=== PATIENT | female | born 1950 | race African-American/Black ===

== ENCOUNTER 2024-06-11 08:57 | Emergency (ER) | payer MEDICARE, SELFPAY ==
[2024-06-11] VITALS (28 sets, daily range): BP systolic 121–148; BP diastolic 72–94; PULSE 83–119; RESP 13–22; TEMP 36.5–36.6; O2SAT 97–100
--- NOTE | ~2024-06-11 | CT_ITS ---
EXAMINATION: CTA brain carotid DATE: 06/11/2024 09:30 CDT INDICATION: Right-sided facial TECHNIQUE: Computed tomographic angiography (CTA) of the head was performed without and with 100 mL O mnipaque-350 intravenous contrast. CTA of the neck was performed with intravenous contrast. The dose- length product was 905.61 mGy-cm. Maximum intensity projection and volume rendered 3D-reconstructions were created by the technologist on a separate workstation. Automated exposure control and iterative reconstruction technique were employed. COMPARISON: CT dated 06/11/2024. FINDINGS: HEAD CTA: The anterior, middle and posterior cerebral arteries are symmetric. There is severely decre ased size of the right internal and common carotid arteries with the majority of intracranial flow be ing provided via collateralization from the left-sided circulation. There is severe atherosclerosis o f the common and internal carotid arteries, right greater than left. NECK CTA: There is severe narrowing of the right common and internal carotid artery with apparent occ lusion of the right internal carotid artery. There is revascularization of the internal carotid via c ollaterals from the external carotid artery. There are dominant vertebral arteries which are unremark able. Small vascular mass of the left thyroid lobe measure 7 mm. Consider correlation with ultrasound . There is approximately 10% stenosis of the proximal left internal carotid artery relative to normal d istal artery lumen diameter. IMPRESSION: 1. 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 There is a severely diminutiv e appearance of the internal carotid artery extending into the intracranial circulation with the tin rity of intracranial flow on the right side being provided via collateralization from the left-sided circulation. Reviewed, dictated and finalized at location B. IMPRESSION: 1. 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 There is a severely diminutive appearance of the internal caroti d artery extending into the intracranial circulation with the majority of intra cranial flow on the right side being provided via collateralization from the le ft-sided circulation.
--- NOTE | ~2024-06-11 | CT_ITS ---
EXAMINATION: CT brain wo con DATE: 06/11/2024 09:05 INDICATION: Right-sided facial droop TECHNIQUE: Computed tomography (CT) of the head was performed without intravenous contrast. The dose- length product was 605.33 mGy-cm. Automated exposure control and iterative reconstruction technique were employed. COMPARISON: No prior studies for comparison. FINDINGS: Mild generalized atrophy. There are scattered moderate periventricular and subcortical whit e matter changes, most likely related to small vessel ischemic disease (microangiopathy). No ventricu lomegaly or midline shift. Basilar cisterns are patent. There are surgical changes consistent with in ternal fixation of the right orbital wall laterally. No significant abnormality of the paranasal sinu ses. There is a right mastoid effusion with surgical changes of the right temporal bone. No acute int racranial hemorrhage, infarction, mass or mass effect. IMPRESSION: 1. No acute intracranial abnormality. Reviewed, dictated and finalized at location B.
--- NOTE | ~2024-06-11 | XR_ITS ---
XR chest 1V portable 06/11/2024 09:41 Indication: CVA. Procedure: AP portable chest Comparison: No prior studies for comparison. Findings: Cardiomegaly. Small left pleural effusion. Focal consolidation left lung base. There is mil d interstitial edema. No pneumothorax. No acute osseous abnormality. Impression: 1: Cardiomegaly with mild interstitial edema. 2: Focal left lower lobe consolidation may represent atelectasis and/or pneumonia. Reviewed, dictated and finalized at location B. Impression: 1: Cardiomegaly with mild interstitial edema. 2: Focal left lower lobe consolidation may represent atelectasis and/or pneumo melodie.
--- NOTE | 2024-06-11 09:06 | ED.NEUROSD ---
HPI - Neuro Symptoms/Deficit General Chief Complaint: Suspected CVA Stated Complaint: L FACIAL DROOP LAST NORMAL 814 Source: patient and EMS Mode of arrival: EMS History of Present Illness HPI Narrative: 73 YEARS OLD FEMALE, RETIREMENT, WAKE UP AT 6:00 A.M. FEELING WEAK AND SOMETHING NOT RIGHT. AT 45 MINUTES AFTER 7 GET HER UP OUT OF THE BED TO WALK AND SHE WAS UNSTEADY SOME A BLURRY VISION LEFT EYE, FEELING LIKE SHE IS GOING TO BLACK OUT. RETIREMENT STAFF NOTICED THAT THE PATIENT HAVE LEFT FACIAL DROOPING COLD EMT. ON ARRIVAL PATIENT DENYING ANY SYMPTOMS, SHE IS TELLING ME THAT SHE HAVE CHRONIC BLINDNESS OF THE RIGHT EYE. PATIENT DENIES ANY ABNORMAL FEELING IN THE FACE, FOCAL WEAKNESS OR SENSORY ABNORMALITY HISTORY OF HYPERTENSION, DIABETES, CONGESTIVE HEART FAILURE, DEPRESSION Related Data Home Medications Medication Instructions Recorded Confirmed Saccharomyces boulardii 250 mg 250 mg PO BID 06/12/24 06/12/24 capsule amiodarone 200 mg tablet 200 mg PO BID 06/12/24 06/12/24 amoxicillin 500 mg-potassium 1 tablet PO TID 06/12/24 06/12/24 clavulanate 125 mg tablet ascorbic acid (vitamin C) 500 mg 500 mg PO DAILY 06/12/24 06/12/24 tablet citalopram 20 mg tablet 20 mg PO DAILY 06/12/24 06/12/24 doxycycline monohydrate 100 mg 100 mg PO BID 06/12/24 06/12/24 capsule empagliflozin 25 mg tablet 25 mg PO DAILY 06/12/24 06/12/24 ferrous sulfate 325 mg (65 mg 325 mg PO DAILY 06/12/24 06/12/24 iron) tablet furosemide 20 mg tablet 10 mg PO DAILY 06/12/24 06/12/24 insulin glargine 100 unit/mL (3 12 unit subcut QAM 06/12/24 06/12/24 mL) subcutaneous pen midodrine 10 mg tablet 10 mg PO TID 06/12/24 06/12/24 potassium chloride 20 mEq 20 meq PO BID 06/12/24 06/12/24 tablet,extended release(part/cryst) prednisolone acetate 1 % eye 1 drp RIGHT EYE Q12H 06/12/24 06/12/24 drops,suspension (Pred Forte) Allergies Allergy/AdvReac Type Severity Reaction Status Date / Time No Known Allergies Allergy Verified 06/11/24 10:01 Review of Systems Review of Systems: All systems reviewed & are unremarkable except as noted in HPI and below Exam Narrative: GENERAL APPEARANCE: WELL-DEVELOPED, WELL-NOURISHED SKIN: NORMAL COLOR HEAD: NORMOCEPHALIC, NONTRAUMATIC EYES: CLEAR CONJUNCTIVA ENT: OROPHARYNX NORMAL, EARS NORMAL, NOSE NORMAL, LEFT FACIAL DROOPING NECK: SUPPLE, NONTENDER CHEST AND RESPIRATORY: AIRWAY PATENT, NO RESPIRATORY DISTRESS, NO ACCESSORY MUSCLE USE HEART: REGULAR RATE/RHYTHM ABDOMEN: SOFT, NONTENDER, NO ORGANOMEGALY, QUIET BOWEL SOUNDS VASCULAR: NORMAL PERIPHERAL PULSES, NORMAL CAPILLARY REFILL. MUSCULOSKELETAL: NORMAL RANGE OF MOTION, NONTENDER BACK NEUROLOGIC: ALERT AND ORIENTED ?3, Course Consultations Consultation #1: DR DURON, NEUROLOGIST AT [facility] WHO ACCEPTED PATIENT TRANSFER Date: 06/11/24 Time: 09:40 Vital Signs Vital signs: Vital Signs Temperature 36.5 C 06/11/24 09:21 Pulse Rate 83 06/11/24 09:21 Respiratory Rate 16 06/11/24 09:21 Blood Pressure 148/94 H 06/11/24 09:21 Pulse Oximetry 100 06/11/24 09:21 Oxygen Delivery Room Air 06/11/24 09:21 Temperature 36.9 C 06/12/24 07:20 Pulse Rate 77 06/12/24 15:00 Respiratory Rate 18 06/12/24 15:00 Blood Pressure 136/76 06/12/24 15:00 Pulse Oximetry 100 06/12/24 15:00 Oxygen Delivery Room Air 06/11/24 10:04 MDM - Neuro Symptoms/Deficit MDM Narrative Medical decision making narrative: PATIENT WOKE UP AT 6:00 A.M. FEELING WEAK, 45 MINUTES AFTER 7 TRY TO GET UP AND NOTICED THAT SHE IS UNSTEADY AND FEELING LIKE SHE IS GOING TO BLACK OUT. RETIREMENT STAFF NOTED THAT THE PATIENT HAVE LEFT FACIAL DROOPING. LAST TIME PATIENT WAS SEEN OKAY WAS LAST NIGHT. VITAL SIGNS STABLE PHYSICAL EXAMINATION SHOWED LEFT FACIAL DROOPING DI
--- NOTE | 2024-06-11 09:07 | ECG_ITS ---
Test Date: 2024-06-11 09:23:34 Measurements Intervals [place] Rate: 77 P: 0 VT: 0 QRS: 9 QRSD: 73 T: 29 QT: 401 QTc: 455 Interpretive Statements ATRIAL FLUTTER/TACHYCARDIA WITH NORMAL VENTRICULAR RESPONSE ANTEROSEPTAL INFARCT, AGE INDETERMINATE BASELINE WANDER- V4-V6 ABNORMAL ECG No previous ECG available for comparison Electronically Signed On 06-11-2024 09:26:56 CDT by Karthikeyan Tony D.O.
[2024-06-11 09:18] LABS: Basophils Absolute Auto 0.1 K/mm3 (0.0-0.1); Basophils Percent Auto 1.1 % (0.2-1.2); Eosinophils Absolute Auto 0.2 K/mm3 (0-0.3); Eosinophils Percent Auto 2.5 % (0-4.4); Hematocrit 35.2 % (37.0-47.0); Hemoglobin 11.3 g/dL (12.0-15.0); Immature Granulocyte Absolute 0.05 K/mm3 (0.00-0.031); Immature Granulocyte Percent A 0.8 % (0-0.5); Lymphocytes Absolute Auto 1.39 K/mm3 (0.9-3.2); Lymphocytes Percent Auto 21.3 % (18.3-44.2); Mean Corpuscular HGB Conc 32.1 g/dl (32-36); Mean Corpuscular Hemoglobin 32.2 pg (26-34); Mean Corpuscular Volume 100.3 fl (80-100); Mean Platelet Volume 9.2 fl (7.4-10.4); Monocytes Absolute Auto 0.6 K/mm3 (0.1-0.6); Monocytes Percent Auto 8.6 % (2.6-8.5); Neutrophils Absolute Auto 4.3 K/mm3 (1.3-6.7); Neutrophils Percent Auto 65.7 % (45.5-73.1); Platelet Count Result 520 k/mm3 (150-375); Red Blood Count 3.51 M/mm3 (4.2-5.4); Red Cell Distribution Width 15.7 % (11.5-14.5); White Blood Count 6.5 K/mm3 (4.5-10.0)
[2024-06-11 09:27] LABS: Glucose Point of Care 79 mg/dl (65-105)
[2024-06-11 09:28] LABS: Alanine Aminotransferase 33 U/L (6-35); Albumin Level 3.7 g/dL (3.5-5.1); Alkaline Phosphatase 175 U/L (38-126); Anion Gap 8 mmol/L (4-12); Aspartate Amino Transferase 43 U/L (14-36); Bilirubin,Total 0.2 mg/dL (0.2-1.3); Blood Urea Nitrogen 12 mg/dL (7-17); Calcium 9.4 mg/dL (8.4-10.2); Carbon Dioxide 26 mmol/L (22-30); Chloride 102 mmol/L (98-107); Estimated CRCL calculation 32 ml/min; Estimated Glomerular Filt Rate 59; Glucose 91 mg/dL (65-110); Potassium 4.4 mmol/L (3.4-5.0); Sodium 136 mmol/L (137-145)
[2024-06-11 09:28] LABS: INR 1.1
[2024-06-11 09:29] LABS: Partial Thromboplastin Time 31.7 Seconds (22.3-36.8)
[2024-06-11 09:39] LABS: Troponin I < 0.012 ng/mL (0.000-0.034)
[2024-06-11] MEDS: ASPIRIN 81 MG CHEWABLE TABLET 324 MG PO (10:13)
--- NOTE | 2024-06-11 19:03 | PC.NURSE ---
Pt is not happy that she have to stay here, Pt is complaining about the food. Pt refused to be on the BP, cardiac and O2 monitor. Pt redirected time, takes off all the monitors and refuse BP and VS.
--- NOTE | 2024-06-11 19:21 | PC.NURSE ---
Report received from RYLEY Denise. Assumed care of patient at this time.
[2024-06-12] VITALS (7 sets, daily range): BP systolic 127–140; BP diastolic 73–96; PULSE 77–103; RESP 17–18; TEMP 36.7–36.9; O2SAT 95–100
--- NOTE | 2024-06-12 07:30 | PC.NURSE ---
Pt given grippy socks, and hygiene products. breakfast ordered and home medications ordered. Pt refuses to get cardiac monitoring on. Pt A&Ox4
[2024-06-12 07:40] LABS: Glucose Point of Care 136 mg/dl (65-105)
[2024-06-12] MEDS: INSULIN GLARGINE (*BKC) 100 UNITS/ML 12 UNITS SUB-Q (07:56)
--- NOTE | 2024-06-12 09:00 | PC.NURSE ---
Hospital bed given to patient
[2024-06-12] MEDS: AMOXICILLIN/CLAVULANATE K 500-125 MG TAB 1 TABLET PO ×2 (09:57→13:31)
[2024-06-12] MEDS: FERROUS SULFATE 325 MG TABLET DR PO (09:57)
[2024-06-12] MEDS: FUROSEMIDE 10 MG TABLET PO (09:57)
[2024-06-12] MEDS: ASCORBIC ACID 500 MG TABLET PO (09:57)
[2024-06-12] MEDS: POTASSIUM CHLORIDE 20 MEQ ER TABLET PO (09:57)
[2024-06-12] MEDS: EMPAGLIFLOZIN 25 MG TABLET PO (09:57)
[2024-06-12] MEDS: CITALOPRAM HYDROBROMIDE 20 MG TABLET PO (09:57)
[2024-06-12] MEDS: DOXYCYCLINE HYCLATE 100 MG TABLET PO (09:57)
[2024-06-12] MEDS: AMIODARONE HCL 200 MG TABLET PO (09:57)
[2024-06-12] MEDS: MIDODRINE HCL 10 MG TABLET PO ×2 (09:57→13:31)
[2024-06-12] MEDS: SACCHAROMYCES BOULARDII 250 MG CAPSULE PO (09:58)
[2024-06-12] MEDS: prednisoLONE ACETATE 1% OPHTH 5 ML 1 DROP RIGHT EYE ×2 (09:58→13:31)
--- NOTE | 2024-06-12 11:49 | PC.NURSE ---
changed pt ostomy bag
--- NOTE | 2024-06-12 17:16 | PC.NURSE ---
attempted to call [facility] to update the pt facility that she would be transferred to [facility] but no one answered
--- NOTE | 2024-06-12 17:17 | PC.NURSE ---
tried calling report over to [facility] numerous time, seven times at this time, with no answer
== END 2024-06-12 17:28 | disposition short-term general hospital (02) ==
LOC: ANHED 09:20
PROVIDERS: Emergency Provider Emergency Medicine; PCP Family Medicine
DX: I63.231 Cerebral infarction due to unspecified occlusion or stenosis of right carotid arteries (principal); R29.703 NIHSS score 3; E11.9 Type 2 diabetes mellitus without complications; I50.9 Heart failure, unspecified; I11.0 Hypertensive heart disease with heart failure; Z79.4 Long term (current) use of insulin; Z79.899 Other long term (current) drug therapy; I48.92 Unspecified atrial flutter; R00.0 Tachycardia, unspecified; R94.31 Abnormal electrocardiogram [ECG] [EKG]
CPT/HCPCS: 36415; 70450; 70496; 70498; 71045; 80053; 82948; 84484; 85025; 85610; 85730; 93005; 99285; A9270; J1815; Q9967